=== PATIENT | female | born 1930 | race Caucasian/White ===

== ENCOUNTER 2016-09-27 22:09 | Inpatient (IN) | payer MEDICARE, OTHER ==
[~2016-09-27] VITALS: Ht 167.6 cm; Wt 53.2 kg
[2016-09-28] MEDS ORDERED: DUONEB INH ONE ×2 (06:09→08:55)
[2016-09-28] MEDS ORDERED: PREDNISONE 10 MG TAB ONE (06:34)
[2016-09-28] MEDS ORDERED: LEVOFLOXACIN 500 MG TAB ONE (06:34)
[2016-09-28] MEDS ORDERED: PREDNISONE 50 MG TAB ONE (06:34)
[2016-09-28] MEDS ORDERED: SALINE FLUSH 10 ML FLUSH PRN (09:55)
[2016-09-28] MEDS ORDERED: NEB-ALBUTEROL 2.5 MG/3 ML INH PRN (09:55)
[2016-09-28 13:01] VITALS: BP_SYST 118; BP_SYST 122; BP_SYST 124; RESP 16; RESP 18; TEMP 98.1; TEMP 98.2
[2016-09-28] MEDS: LEVOTHYROXINE 0.025 MG TAB PO SCH (13:09)
[2016-09-28] MEDS: ASPIRIN 81 MG CHEW TAB PO SCH (13:10)
[2016-09-28] MEDS: Furosemide 20 MG TAB PO SCH (13:10)
[2016-09-28] MEDS: DILTIAZEM 60 MG TAB PO SCH (13:10)
[2016-09-28] MEDS: DIGOXIN 0.125 MG TAB PO SCH (13:11)
[2016-09-28] MEDS: METOPROLOL XL 25 MG TAB PO SCH ×2 (13:11→21:57)
[2016-09-28 13:28] VITALS: Ht 167.6 cm; Wt 53.2 kg
[2016-09-28] MEDS: DUONEB INH SCH ×2 (15:40→17:51)
[2016-09-28 15:44] VITALS: RESP 18
[2016-09-28 15:47] VITALS: BP_SYST 133; RESP 18; TEMP 98.1
[2016-09-28] MEDS: METHYLPRED SOD SUCC 40 MG VIAL IV SCH (16:24)
[2016-09-28] MEDS: NEB-BROVANA 15 MCG/2 ML INH SCH (17:51)
[2016-09-28] MEDS: NEB-BUDESONIDE 0.5 MG INH SCH (17:51)
[2016-09-28 19:00] VITALS: BP_SYST 116; RESP 18; TEMP 98.4
[2016-09-28] MEDS: SALINE FLUSH 10 ML FLUSH SCH (20:00)
[2016-09-28] MEDS: DOXYCYCLINE 100 MG in SODIUM CHLORIDE 0.9% 250 ML IV SCH (21:51)
[2016-09-28] MEDS: MONTELUKAST 10 MG TAB PO SCH (21:56)
[2016-09-28] MEDS: SODIUM CHLORIDE 0.9% FLUSH BAG 500 ML IV SCH (22:09)
[2016-09-29] VITALS (10 sets, daily range): BP systolic 79–127; RESP 18–20; TEMP 97.5–98.3
[2016-09-29] MEDS: DUONEB INH SCH ×5 (00:04→23:18)
[2016-09-29] MEDS: METHYLPRED SOD SUCC 40 MG VIAL IV SCH ×3 (00:28→15:20)
[2016-09-29] MEDS: NEB-BROVANA 15 MCG/2 ML INH SCH ×2 (05:23→20:11)
[2016-09-29] MEDS: NEB-BUDESONIDE 0.5 MG INH SCH ×2 (05:24→20:12)
[2016-09-29] MEDS: LEVOTHYROXINE 0.025 MG TAB PO SCH (06:47)
[2016-09-29] MEDS ORDERED: LEVOFLOXACIN 500 MG/100 ML 100 ML IV SCH (09:00)
[2016-09-29] MEDS: DOXYCYCLINE 100 MG in SODIUM CHLORIDE 0.9% 250 ML IV SCH (09:07)
[2016-09-29] MEDS: ASPIRIN 81 MG CHEW TAB PO SCH (09:08)
[2016-09-29] MEDS: Furosemide 20 MG TAB PO SCH (09:08)
[2016-09-29] MEDS: DILTIAZEM 60 MG TAB PO SCH (09:08)
[2016-09-29] MEDS: METOPROLOL XL 25 MG TAB PO SCH ×2 (09:08→21:32)
[2016-09-29] MEDS: SALINE FLUSH 10 ML FLUSH SCH ×2 (09:11→21:30)
[2016-09-29] MEDS ORDERED: SODIUM CHLORIDE 0.9% 1,000 ML IV ONE (11:30)
[2016-09-29] MEDS: DIGOXIN 0.125 MG TAB PO SCH (12:29)
[2016-09-29] MEDS: FAMOTIDINE 20 MG TAB PO SCH ×2 (12:30→21:32)
[2016-09-29] MEDS: CYANOCOBALAMIN 1000 MCG/ML VIAL IM SCH (15:21)
[2016-09-29] MEDS: MONTELUKAST 10 MG TAB PO SCH (21:32)
[2016-09-29] MEDS: DOXYCYCLINE 100 MG TAB PO SCH (21:32)
[2016-09-30] VITALS (7 sets, daily range): BP systolic 114–134; RESP 12–20; TEMP 97.3–98.7
[2016-09-30] MEDS: METHYLPRED SOD SUCC 40 MG VIAL IV SCH ×2 (00:34→08:04)
[2016-09-30] MEDS: SODIUM CHLORIDE 0.9% FLUSH BAG 500 ML IV SCH (05:48)
[2016-09-30] MEDS: NEB-BUDESONIDE 0.5 MG INH SCH ×2 (05:59→19:15)
[2016-09-30] MEDS: DUONEB INH SCH ×4 (05:59→23:06)
[2016-09-30] MEDS: NEB-BROVANA 15 MCG/2 ML INH SCH ×2 (06:00→19:15)
[2016-09-30] MEDS: LEVOTHYROXINE 0.025 MG TAB PO SCH (06:23)
[2016-09-30] MEDS: SALINE FLUSH 10 ML FLUSH SCH ×2 (08:00→20:27)
[2016-09-30] MEDS: CYANOCOBALAMIN 1000 MCG/ML VIAL IM SCH (08:05)
[2016-09-30] MEDS: ASPIRIN 81 MG CHEW TAB PO SCH (08:05)
[2016-09-30] MEDS: METOPROLOL XL 25 MG TAB PO SCH ×2 (08:05→20:27)
[2016-09-30] MEDS: DOXYCYCLINE 100 MG TAB PO SCH ×2 (08:05→20:26)
[2016-09-30] MEDS: Furosemide 20 MG TAB PO SCH (08:05)
[2016-09-30] MEDS: FAMOTIDINE 20 MG TAB PO SCH ×2 (08:05→20:26)
[2016-09-30] MEDS: DILTIAZEM 60 MG TAB PO SCH (08:05)
[2016-09-30] MEDS: DIGOXIN 0.125 MG TAB PO SCH (12:23)
[2016-09-30] MEDS: PREDNISONE 50 MG TAB PO SCH (12:23)
[2016-09-30] MEDS: MONTELUKAST 10 MG TAB PO SCH (20:26)
[2016-10-01 03:09] VITALS: BP_SYST 123; RESP 20; TEMP 98.2
[2016-10-01] MEDS: SODIUM CHLORIDE 0.9% FLUSH BAG 500 ML IV SCH (05:59)
[2016-10-01] MEDS: LEVOTHYROXINE 0.025 MG TAB PO SCH (06:00)
[2016-10-01] MEDS: NEB-BUDESONIDE 0.5 MG INH SCH (06:18)
[2016-10-01] MEDS: DUONEB INH SCH (06:18)
[2016-10-01] MEDS: NEB-BROVANA 15 MCG/2 ML INH SCH (06:18)
[2016-10-01 07:32] VITALS: BP_SYST 134; TEMP 97.6
[2016-10-01 07:33] VITALS: RESP 12
[2016-10-01] MEDS: ASPIRIN 81 MG CHEW TAB PO SCH (08:38)
[2016-10-01] MEDS: METOPROLOL XL 25 MG TAB PO SCH (08:39)
[2016-10-01] MEDS: FAMOTIDINE 20 MG TAB PO SCH (08:39)
[2016-10-01] MEDS: DOXYCYCLINE 100 MG TAB PO SCH (08:39)
[2016-10-01] MEDS: PREDNISONE 50 MG TAB PO SCH (08:40)
[2016-10-01] MEDS: Furosemide 20 MG TAB PO SCH (08:40)
[2016-10-01] MEDS: DILTIAZEM 60 MG TAB PO SCH (08:40)
[2016-10-01] MEDS: CYANOCOBALAMIN 1000 MCG/ML VIAL IM SCH (08:41)
[2016-10-01] MEDS: SALINE FLUSH 10 ML FLUSH SCH (08:41)
[2016-10-01 11:13] VITALS: BP_SYST 150; RESP 16; TEMP 97.8
[2016-10-01] MEDS: DIGOXIN 0.125 MG TAB PO SCH (12:24)
[2016-10-01 12:32] VITALS: BP_SYST 150; RESP 16; TEMP 97.8
== END 2016-10-01 12:57 | disposition home or self-care (01) | DRG 191 ==
LOC: ENRESERVDT → ENRESERVTM → ER 22:09 → EMR 09-28 09:52 → PCU2 09-28 11:23 → OBSVTOIN 09-29 12:11 → ENPENDDIS 09-29 12:11 → 3NT 09-29 19:15
PROVIDERS: ADMIT Family Medicine; ATTEND Family Medicine
CPT/HCPCS: 36415; 71020; 80048; 80053; 82553; 82607; 82746; 83880; 84484; 85025; 87804; 93005; 94640; 94799; 99220; 99232; 99239